=== PATIENT | female | born 1985 | race Caucasian/White ===

== ENCOUNTER 2018-03-06 20:31 | Inpatient (IN) | payer MEDICAID ==
[2018-03-06] MEDS ORDERED: Sodium Chloride 0.9% 2.5 ML Syringe FLUSH PRN (21:05)
[2018-03-06] MEDS ORDERED: Methylergonovine 0.2 MG/1 ML Amp IM PRN (21:05)
[2018-03-06] MEDS ORDERED: Lidocaine 1% 50 ML MDV INJECT PRN (21:05)
[2018-03-06] MEDS ORDERED: Misoprostol 200 MCG Tab PO PRN (21:05)
[2018-03-06] MEDS ORDERED: Water For Irrigation,Sterile 1,000 ML Container IRR PRN (21:05)
[2018-03-06] MEDS ORDERED: Carboprost Tromethamine 250 MCG/1 ML Amp IM PRN (21:05)
[2018-03-06] MEDS ORDERED: Butorphanol 1 MG/ML SDV IVPUSH PRN (21:05)
[2018-03-06] MEDS ORDERED: Sodium Chloride 0.9% 10 ML Syringe FLUSH PRN (21:05)
[2018-03-06] MEDS ORDERED: Nalbuphine 10 MG/1 ML Vial IVPUSH PRN (21:05)
[2018-03-06] MEDS ORDERED: Tranexamic Acid 1,000 MG in Sodium Chloride 0.9% 100 ML IV PRN (21:05)
[2018-03-06] MEDS ORDERED: Terbutaline 1 MG/ML SDV SUBCUT PRN (21:08)
[2018-03-06] MEDS ORDERED: Oxytocin/0.9 % Sodium Chloride 30 UNIT/500 ML BAG IV SCH (21:15)
[2018-03-06] MEDS ORDERED: ceFAZolin 1 GM Vial IM SCH (21:15)
[2018-03-06] MEDS ORDERED: ceFAZolin 2 GM in Premix Bag 1 BAG IV ONE (21:22)
[2018-03-06] MEDS: Lactated Ringers 1,000 ML IV SCH ×2 (21:35→23:53)
--- NOTE | 2018-03-06 23:23 | PCM.PREANE ---
Preanesthetic Assessment - Anesthesia/Transfusion/Family Hx Anesthesia History: Prior Anesthesia Without Reaction Transfusion History: No Prior Transfusion(s) - Review of Systems General: No Symptoms Pulmonary: No Symptoms Cardiovascular: No Symptoms Gastrointestinal: No Symptoms Neurological: No Symptoms Other: Reports: None - Physical Assessment Height: 5 ft 7 in Weight: 101.151 kg ASA Class: 2 Mental Status: Alert & Oriented x3 Airway Class: Mallampati = 2 Dentition: Reports: Normal Dentition Thyro-Mental Finger Breadths: 3 Mouth Opening Finger Breadths: 3 ROM/Head Extension: Full Lungs: Clear to Auscultation, Normal Respiratory Effort Cardiovascular: Regular Rate, Regular Rhythm - Lab Values: Laboratory Last Values WBC 10.71 K/uL (4.0-11.0) 03/06/18 21: RBC 4.01 M/uL (4.30-5.90) L 03/06/18 21:28 Hgb 12.6 g/dL (12.0-16.0) 03/06/18 21:28 Hct 37.4 % (36.0-46.0) 03/06/18 21:28 MCV 93.3 fL (80.0-98.0) 03/06/18 21:28 MCH 31.4 pg (27.0-32.0) 03/06/18 21:28 MCHC 33.7 g/dL (31.0-37.0) 03/06/18 21:28 RDW Std Deviation 49.6 fl (28.0-62.0) 03/06/18 21:28 RDW Coeff of Fausto 15 % (11.0-15.0) 03/06/18 21:28 Plt Count 181 K/uL (150-400) 03/06/18 21:28 MPV 11.80 fL (7.40-12.00) 03/06/18 21:28 Nucleated RBC % 0.0 /100WBC 03/06/18 21:28 Nucleated RBCs # 0 K/uL 03/06/18 21:28 POC Glucose 86 mg/dL (60-110) 03/06/18 20:56 - Allergies Allergies/Adverse Reactions: Allergies Allergy/AdvReac Type Severity Reaction Status Date / Time Penicillins Allergy Itching Verified 03/06/18 20:58 - Acknowledgements Anesthesia Type Planned: Epidural Pt an Appropriate Candidate for the Planned Anesthesia: Yes Alternatives and Risks of Anesthesia Discussed w Pt/Guardian: Yes Pt/Guardian Understands and Agrees with Anesthesia Plan: Yes PreAnesthesia Questionnaire HEENT History: Reports: Impaired Vision Cardiovascular History: Reports: None Respiratory History: Reports: None Gastrointestinal History: Reports: Other (See Below) Other Gastrointestinal History: chrohn's disease Genitourinary History: Reports: None MANAGER CHANGE History: Reports: : 4 Para: 3 LMP (Approximate): Other OB/BYN History: Hx of shoulder dystocia Musculoskeletal History: Reports: Fracture Neurological History: Reports: None Psychiatric History: Reports: None Endocrine/Metabolic History: Reports: Diabetes, Gestational Hematologic History: Reports: None Immunologic History: Reports: None Oncologic (Cancer) History: Reports: None Dermatologic History: Reports: None - Infectious Disease History Infectious Disease History: Reports: Chicken Pox, Measles, Mononucleosis - Past Surgical History HEENT Surgical History: Reports: Oral Surgery, Other (See Below) Other HEENT Surgeries/Procedures: wisdom teeth extraction GI Surgical History: Reports: None - SUBSTANCE USE Smoking Status *Q: Current Every Day Smoker - HOME MEDS Home Medications: Home Meds . [No Known Home Meds] 03/06/18 [History] - CURRENT (IN HOUSE) MEDS Current Meds: Current Medications Butorphanol Tartrate (Stadol) 1 mg IVPUSH Q1H PRN PRN Reason: Pain Carboprost Tromethamine (Hemabate Ds) 250 mcg IM ASDIRECTED PRN PRN Reason: Post Hemorrhage Lactated Ringer's (Ringers, Lactated) 1,000 mls @ 150 mls/hr IV ASDIRECTED AZRA Last Admin: 03/06/18 21:35 Dose: 150 mls/hr Tranexamic Acid 1,000 mg/ (Sodium Chloride) 110 mls @ 660 mls/hr IV ONETIME PRN PRN Reason: Bleeding Oxytocin/Sodium Chloride (Oxytocin 30 Unit/500 Ml-Ns) 30 unit in 500 mls @ 2 mls/hr IV TITRATE AZRA; Protocol Last Titration: 03/06/18 22:20 Dose: 4 munits/min, 4 mls/hr Cefazolin Sodium/Dextrose 1 gm (/ Premix) 50 mls @ 100 mls/hr IV Q8H [facility]RA Lidocaine HCl (Xylocaine 1%) 50 ml INJECT .ONCE PRN PRN Reason: Laceration repair Methylergonovine Maleate (Methergine) 0.2 mg IM ASDIRECTED PRN PRN Reason: Post Hemorrhage Misoprostol (Cytotec) 200 mcg PO .ONCE PRN PRN Reason: Post Hemorrhage Nalbuphine HCl (Nubain) 10 mg IVPUSH Q1H PRN PRN Reason: Pain (severe 7-10) Sodium Chloride (Saline Flush) 10 ml FLUSH ASDIRECTED PRN PRN Reason: Keep Vein Open Sodium Chloride (Saline Flush) 2.5 ml FLUSH ASDIRECTED PRN PRN Reason: Keep Vein Open Sterile Water (Sterile Water For Irrigation) 1,000 ml IRR ASDIRECTED PRN PRN Reason: delivery Terbutaline Sulfate (Brethine) 0.25 mg SUBCUT ASDIRECTED PRN PRN Reason: Tacysystole Discontinued Medications Cefazolin Sodium (Ancef) 1 gm IM Q8H [facility] Cefazolin Sodium/Dextrose 2 gm (/ Premix) 50 mls @ 100 mls/hr IV ONETIME ONE Stop: 03/06/18 21:51 Last Admin: 03/06/18 21:37 Dose: 100 mls/hr
[2018-03-07] MEDS ORDERED: ceFAZolin 1 GM in Premix Bag 1 BAG IV SCH (06:00)
[2018-03-07] MEDS ORDERED: Bupivacaine 0.5% 10 ML SDV ONE (07:59)
[2018-03-07] MEDS ORDERED: Bisacodyl 10 MG Supp RECTAL PRN (10:25)
[2018-03-07] MEDS ORDERED: Ibuprofen 400 MG Tab PO PRN (10:25)
[2018-03-07] MEDS ORDERED: Acetaminophen 500 MG Tab PO PRN (10:25)
[2018-03-07] MEDS ORDERED: Docusate Sodium 100 MG Cap PO PRN (10:25)
[2018-03-07] MEDS ORDERED: Lanolin 100% Cream 7 GM Tube TOP PRN (10:25)
[2018-03-07] MEDS ORDERED: Witch Hazel Medicated Pads 40/Jar TOP PRN (10:25)
[2018-03-07] MEDS ORDERED: Benzocaine/Menthol 20%-0.5% Spray 78 GM Cannister TOP PRN (10:25)
[2018-03-07] MEDS: Ibuprofen 800 MG Tab PO PRN ×2 (11:55→17:30)
[2018-03-07] MEDS: Acetaminophen 500 MG Tab PO PRN (14:21)
[2018-03-07] MEDS: oxyCODONE 5 MG Tab PO PRN ×3 (14:22→21:46)
--- NOTE | 2018-03-07 14:56 | OR ---
SURGEON: Halina Quintana MD DATE OF PROCEDURE: 03/07/2018 PREOPERATIVE DIAGNOSES: 1. Term intrauterine at 39 weeks and 1-day gestation. 2. Gestational diabetes, diet controlled. 3. Polyhydramnios. 4. Suspected macrosomia. POSTOPERATIVE DIAGNOSES: 1. Term intrauterine at 39 weeks and 1-day gestation. 2. Gestational diabetes, diet controlled. 3. Polyhydramnios. 4. Macrosomic baby, 5. Delivered. PROCEDURES: 1. Induction of labor. 2. Spontaneous vaginal delivery. ANESTHESIA: Epidural. ESTIMATED BLOOD LOSS: 150 mL. COMPLICATIONS: None. DISPOSITION: Mother and baby stable in Labor and Delivery room, [facility]. FINDINGS: Female infant, weight 4660 g, scores of 7 and 9 at 1 and 5 minutes respectively. Grossly normal placenta with 3-vessel cord. Intact perineum. BRIEF HISTORY: Ms Meyer is a 32-year-old patient, G4, P3-0-0-3. She is a patient of [facility] under the care of Dr. Neetu Syed. [facility] is taking care of patients from the practice this weekend as Dr. Martines, the provider, is away. She was admitted last evening for induction of labor due to gestational diabetes controlled with resultant polyhydramnios. Her care is complicated by insufficient care, she had been moved from [place] approximately 4 to 6 weeks ago, where she reports that she had received adequate care. She recently sought for care in [place] and was only seen twice at [facility] and was diagnosed with polyhydramnios on a sonogram. GBS status unknown. Of note, is that the Ms Meyer, last in 2015 was complicated by gestational diabetes, with shoulder dystocia at delivery, the infant weighed 8lbs 8oz. On admission, she definitely was measuring large for date. The parts were ballottable consistent with polyhydramnios, and it was difficult to estimate the weight accurately by Sony, with an estimate of over 4000 grams. On vaginal examination, she was 3 cm dilated, 80% effaced, and the presenting part was ballotable. The presenting part was confirmed to be cephalic with bedside SonoSite. The risks and benefits of induction of labor with Oxytocin were discussed with the patient. Also, we also had an extensive discussion of the possibilities of shoulder dystocia during delivery. Risks reviewed included possible trauma and possibly depending on its severity. Induction of labor was commenced with oxytocin. She will also receive Ancef for GBS prophylaxis, as she was allergic to penicillin. Artificial rupture of membranes was performed with copious amounts of clear fluid noted, and she received epidural for pain management. She then progressed slowly to full dilatation and commenced active pushing. With her pushing and bringing the head down to +4 station, she was set up for delivery-modified dorsal lithotomy position.She remained euglycemic throughout the intrapartum period. heart tracing was Category 2. DESCRIPTION OF DELIVERY: She had a spontaneous vaginal delivery of a live female in direct occipital anterior position. Once the head was delivered, the patient was placed in Ford position in anticipation of possible difficulty with delivery of the shoulders. A loose nuchal cord was felt and reduced. The baby then restituted to left occipital anterior position and the anterior and posterior shoulders were delivered without difficulty, but there was mild difficulty delivering the abdomen; but once this was achieved, the rest of the baby was delivered. The was flooding of amniotic fluid with delivery of the baby, and the terminal meconium staining was also noted. Upon delivery, the baby was floppy, and stimulation was started on the perineum. The cord was then quickly double clamped and cut, and the was then taken the warmer in attendance of the nursery staff who continued with stimulation, drying and evaluation of the . Dr. Glasgow, the cable ferry operator on-call, was called, as she was at the nursing station and she arrived [facility]. With delivery of the infant, oxytocin infusion was converted to titration. Cord blood and gas samples were obtained, and the placenta was delivered by controlled cord traction, appeared to be complete and intact. Vigorous uterine massage was performed. The uterus was found to be well contracted. Examination of the perineum revealed no lacerations. The patient tolerated the procedure well. Sponge, instrument, and needle counts were correct at the end of the delivery. The baby transitioned well and remained in the Labor and Delivery room with the mother, bonding. ADUMVIV / RUDOLPHL /[id number] NIYA
[2018-03-08] MEDS: oxyCODONE 5 MG Tab PO PRN ×3 (04:48→13:45)
[2018-03-08] MEDS: Ibuprofen 800 MG Tab PO PRN ×2 (04:49→10:36)
[2018-03-08] MEDS: Acetaminophen 500 MG Tab PO PRN ×2 (08:06→13:49)
--- NOTE | 2018-03-08 10:12 | PCM48HPAN ---
Post Anesthesia Note - EVALUATION WITHIN 48HRS OF ANESTHETIC Vital Signs in Normal Range: Yes Patient Participated in Evaluation: Yes Respiratory Function Stable: Yes Airway Patent: Yes Cardiovascular Function Stable: Yes Hydration Status Stable: Yes Pain Control Satisfactory: Yes Nausea and Vomiting Control Satisfactory: Yes Mental Status Recovered: Yes Resp Rate: 16
--- NOTE | 2018-03-08 13:11 | PCM.PNPP ---
- General Info Date of Service: 03/08/18 Functional Status: Reports: Pain Controlled, Tolerating Diet, Ambulating, Urinating - Review of Systems General: Denies: Fever, Malaise, Chills HEENT: Denies: Headaches Pulmonary: Denies: Shortness of Breath, Pleuritic Chest Pain Cardiovascular: Denies: Chest Pain, Palpitations, Dyspnea on Exertion Gastrointestinal: Reports: Abdominal Pain (mild cramps controlled with pain meds PRN) Genitourinary: Denies: Dysuria, Frequency, Incontinence, Retention Skin: Reports: No Symptoms Neurological: Reports: No Symptoms Psychiatric: Reports: No Symptoms - General Info Date of Service: 03/08/18 - Patient Data Vital Signs - Most Recent: Last Vital Signs Temp 36.7 C 03/08/18 08:00 Pulse 70 03/08/18 08:00 Resp 16 03/08/18 10:12 BP 121/65 03/08/18 08:00 Pulse Ox 96 03/08/18 08:00 Weight - Most Recent: 223 lb Lab Results - Last 24 Hours: Laboratory Results - last 24 hr 03/08/18 Range/Units 05:53 Hgb 11.8 L (12.0-16.0) g/dL Hct 35.4 L (36.0-46.0) % Med Orders - Current: Current Medications Acetaminophen (Tylenol Extra Strength) 500 mg PO Q4H PRN PRN Reason: Pain Last Admin: 03/07/18 21:45 Dose: 500 mg Acetaminophen (Tylenol Extra Strength) 1,000 mg PO Q4H PRN PRN Reason: Pain Last Admin: 03/08/18 08:06 Dose: 1,000 mg Benzocaine/Menthol (Dermoplast Pain Relief 20%-0.5% [place]) 78 gm TOP ASDIRECTED PRN PRN Reason: Perineal Comfort Measure Bisacodyl (Dulcolax) 10 mg RECTAL .ONCE PRN PRN Reason: Constipation Docusate Sodium (Colace) 100 mg PO BID PRN PRN Reason: Constipation Last Admin: 03/07/18 12:32 Dose: 100 mg Emollient Ointment (Lansinoh Hpa) 0 gm TOP ASDIRECTED PRN PRN Reason: Sore Nipples Ibuprofen (Motrin) 400 mg PO Q4H PRN PRN Reason: Pain Ibuprofen (Motrin) 800 mg PO Q6H PRN PRN Reason: Pain Last Admin: 03/08/18 10:36 Dose: 800 mg Oxycodone HCl (Oxycodone) 5 mg PO Q2H PRN PRN Reason: Pain Last Admin: 03/08/18 04:48 Dose: 5 mg Witch Zahra (Tucks) 1 pad TOP ASDIRECTED PRN PRN Reason: comfort care Discontinued Medications Bupivacaine HCl (Sensorcaine-Mpf 0.5%) Confirm Administered Dose 10 ml .ROUTE .STK-MED ONE Stop: 03/07/18 08:00 Last Admin: 03/07/18 22:53 Dose: Not Given Butorphanol Tartrate (Stadol) 1 mg IVPUSH Q1H PRN PRN Reason: Pain Carboprost Tromethamine (Hemabate Ds) 250 mcg IM ASDIRECTED PRN PRN Reason: Post Hemorrhage Cefazolin Sodium (Ancef) 1 gm IM Q8H [facility] Last Admin: 03/07/18 22:53 Dose: Not Given Lactated Ringer's (Ringers, Lactated) 1,000 mls @ 150 mls/hr IV ASDIRECTED AZRA Last Admin: 03/06/18 23:53 Dose: 150 mls/hr Tranexamic Acid 1,000 mg/ (Sodium Chloride) 110 mls @ 660 mls/hr IV ONETIME PRN PRN Reason: Bleeding Oxytocin/Sodium Chloride (Oxytocin 30 Unit/500 Ml-Ns) 30 unit in 500 mls @ 2 mls/hr IV TITRATE [facility]; Protocol Last Titration: 03/07/18 10:08 Dose: 999 mls/hr Cefazolin Sodium/Dextrose 2 gm (/ Premix) 50 mls @ 100 mls/hr IV ONETIME ONE Stop: 03/06/18 21:51 Last Admin: 03/06/18 21:37 Dose: 100 mls/hr Cefazolin Sodium/Dextrose 1 gm (/ Premix) 50 mls @ 100 mls/hr IV Q8H [facility] Last Admin: 03/07/18 06:04 Dose: 100 mls/hr Fentanyl/Bupivacaine HCl ([id number] 2 Mcg/Ml-0.125%) Confirm Administered Dose 100 mls @ as directed EP .STK-MED ONE Stop: 03/06/18 23:26 Last Admin: 03/07/18 22:53 Dose: Not Given Fentanyl/Bupivacaine HCl ([id number] 2 Mcg/Ml-0.125%) Confirm Administered Dose 100 mls @ as directed [facility] ONE Stop: 03/07/18 07:10 Last Admin: 03/07/18 22:53 Dose: Not Given Lidocaine HCl (Xylocaine 1%) 50 ml INJECT .ONCE PRN PRN Reason: Laceration repair Methylergonovine Maleate (Methergine) 0.2 mg IM ASDIRECTED PRN PRN Reason: Post Hemorrhage Misoprostol (Cytotec) 200 mcg PO .ONCE PRN PRN Reason: Post Hemorrhage Nalbuphine HCl (Nubain) 10 mg IVPUSH Q1H PRN PRN Reason: Pain (severe 7-10) Sodium Chloride (Saline Flush) 10 ml FLUSH ASDIRECTED PRN PRN Reason: Keep Vein Open Sodium Chloride (Saline Flush) 2.5 ml FLUSH ASDIRECTED PRN PRN Reason: Keep Vein Open Sterile Water (Sterile Water For Irrigation) 1,000 ml IRR ASDIRECTED PRN PRN Reason: delivery Last Admin: 03/07/18 10:00 Dose: 1,000 ml Terbutaline Sulfate (Brethine) 0.25 mg SUBCUT ASDIRECTED PRN PRN Reason: Tacysystole - Infant Interaction Infant Disposition, : [place] to Nursery Infant Feeding: Bottle Fed Infant Support Person: Significant Other - Recovery Exam Fundal Tone: Firm Fundal Level: At Umbilicus Fundal Placement: Midline Lochia Amount: Small Lochia Color: Rubra/Red Perineum Description: Intact, Minimal Bruising/Swelling Bladder Status: Voiding - Exam General: Alert, Oriented HEENT: Pupils Equal Lungs: Clear to Auscultation, Normal Respiratory Effort Cardiovascular: Regular Rate, Regular Rhythm GI/Abdominal Exam: Soft, Non-Tender Extremities: Non-Tender, Pedal Edema Skin: Warm Psy/Mental Status: Alert, Normal Affect, Normal Mood - Problem List & Annotations (1) Vaginal delivery SNOMED Code(s): 705226591 Code(s): O80 - ENCOUNTER FOR FULL-TERM UNCOMPLICATED DELIVERY Status: Acute Current Visit: Yes (2) Gestational diabetes SNOMED Code(s): 36992626 Code(s): O24.419 - GESTATIONAL DIABETES MELLITUS IN , UNSP CONTROL Status: Acute Current Visit: Yes - Problem List Review Problem List Initiated/Reviewed/Updated: Yes - Assessment Assessment:: PPD #1 s/p of a macrosomic infant, c/o soreness but otherwise stable and afebrile Clinically stable for discharge today - Plan Plan:: Discharge instructions reviewed Nothing in the vagina for 6 weeks Bleeding and infection precautions reviewed OTC pain meds PRN Needs a 2 hr GTT at 6-12 weeks Follow up for routine visit at [facility] in 2-6 weeks
== END 2018-03-08 14:18 | disposition home or self-care (01) | DRG 775 ==
LOC: MW.OBCHECK 20:31 → MW.OB 20:35 → MW.OBCHECK 21:05 → MW.OB 21:05 → OBSVTOIN 03-07 10:05
PROVIDERS: ADMIT Obstetrics & Gynecology; ATTEND Obstetrics & Gynecology
PROC: 10E0XZZ Delivery of Products of Conception, External Approach (ICD-10-PCS; principal; 2018-03-07)
PROC: 3E033VJ Introduction of Other Hormone into Peripheral Vein, Percutaneous Approach (ICD-10-PCS; 2018-03-07)
PROC: 10907ZC Drainage of Amniotic Fluid, Therapeutic from Products of Conception, Via Natural or Artificial Opening (ICD-10-PCS; 2018-03-07)
DX: O24.420 Gestational diabetes mellitus in childbirth, diet controlled (principal); O40.3XX0 Polyhydramnios, third trimester, not applicable or unspecified; O36.63X0 Maternal care for excessive fetal growth, third trimester, not applicable or unspecified; O09.33 Supervision of pregnancy with insufficient antenatal care, third trimester; O99.334 Smoking (tobacco) complicating childbirth; Z3A.39 39 weeks gestation of pregnancy; Z37.0 Single live birth; Z88.0 Allergy status to penicillin
CPT/HCPCS: 36415; 51701; 51702; 59025; 59409; 80305; 81003; 82803; 82962; 85014; 85018; 85027; 86156; 86850; 86900; 86901; 88307; A9270-GY; J0690; J2590; J7120

== ENCOUNTER 2018-05-08 10:47 | Emergency (ER) | payer MEDICAID ==
[2018-05-08] MEDS ORDERED: Sodium Chloride 0.9% 1,000 ML IV ONE (10:59)
[2018-05-08 11:49] LABS: CHLORIDE,CL 109 mmol/L (98-107); SODIUM,NA 140 mmol/L (136-145)
--- NOTE | 2018-05-08 12:28 | EDM.PDOC ---
ED HPI GENERAL MEDICAL PROBLEM - General Chief Complaint: Fever Stated Complaint: UNK ISSUES Time Seen by Provider: 05/08/18 11:00 Source of Information: Reports: Patient History Limitations: Reports: No Limitations - History of Present Illness INITIAL COMMENTS - FREE TEXT/NARRATIVE: HISTORY AND PHYSICAL: History of present illness: Patient is a 32-year-old female who presents to the emergency room today with complaints of a 2 day history of fever, low back pain and dysuria. Patient is concerned as she is 2 months , vaginal delivery. No complications post delivery. She is currently bottlefeeding, not breast-feeding. She also received the Depo-Provera control injection 2 weeks ago. She denies any chest pain, shortness of breath, cough, abdominal pain, nausea, vomiting, diarrhea or constipation. She has no vaginal bleeding or discharge Review of systems: As per history of present illness and below otherwise all systems reviewed and negative. Past medical history: As per history of present illness and as reviewed below otherwise noncontributory. Surgical history: As per history of present illness and as reviewed below otherwise noncontributory. Social history: No reported history of drug or alcohol abuse. Family history: As per history of present illness and as reviewed below otherwise noncontributory. Physical exam: General: Well-developed 32-year-old female. Alert and oriented. Nontoxic appearing and in no acute distress. HEENT: Atraumatic, normocephalic, pupils equal and reactive bilaterally, negative for conjunctival pallor or scleral icterus, mucous membranes moist but lips are dry appearing, throat clear, neck supple, nontender, trachea midline. No drooling or trismus noted. No meningeal signs Lungs: Clear to auscultation, breath sounds equal bilaterally, chest nontender. Heart: S1S2, regular rate and rhythm without overt murmur Abdomen: Soft, nondistended, nontender. Negative for masses or hepatosplenomegaly. Negative for costovertebral tenderness. Pelvis: Stable nontender. Genitourinary: Deferred. Rectal: Deferred. Skin: Intact, warm, dry. No lesions or rashes noted. Extremities: Atraumatic, negative for cords or calf pain. Neurovascular unremarkable. Neuro: Awake, alert, oriented. Cranial nerves II through XII unremarkable. Cerebellum unremarkable. Motor and sensory unremarkable throughout. Exam nonfocal. Notes: Her physical examination is normal. She has no flank pain or suprapubic discomfort. Appear slightly dry and she states she is unable to void at this time. I will give her some IV fluids to help rehydrate her and to get a urine sample. Her urinalysis shows she has a UTI. I will place her on Macrobid and Pyridium. A urine culture has been added. Supportive care measures were reviewed and discussed. She voices understanding and is agreeable to plan of care. Diagnostics: CBC, CMP, UA, urine , urine culture Therapeutics: IV fluid Impression: Urinary tract infection Plan: Please take your antibiotic as discussed Increase your oral fluids Tylenol and Ibuprofen as needed for pain/fever management Follow up with your primary care provider in the next 1-2 days. Return to the ED as needed and as discussed. Definitive disposition and diagnosis as appropriate pending reevaluation and review of above. Duration: Day(s): Bilateral Lower Back Pain Score (Numeric/FACES): 8 - Related Data Allergies Allergy/AdvReac Type Severity Reaction Status Date / Time Penicillins Allergy Itching Verified 05/08/18 10:56 Home Meds: Home Meds . 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: Hx of shoulder dystocia Musculoskeletal History: Reports: Fracture Neurological History: Reports: None Psychiatric History: Reports: None Endocrine/Metabolic History: Reports: Diabetes, Gestational Hematologic History: Reports: None Immunologic History: Reports: None Oncologic (Cancer) History: Reports: None Dermatologic History: Reports: None - Infectious Disease History Infectious Disease History: Reports: Chicken Pox, Measles, Mononucleosis - Past Surgical History HEENT Surgical History: Reports: Oral Surgery, Other (See Below) Other HEENT Surgeries/Procedures: wisdom teeth extraction GI Surgical History: Reports: None Social & Family History - Family History HEENT: Reports: Glaucoma, Impaired Vision Cardiac: Reports: None Respiratory: Reports: None GI: Reports: None : Reports: None OBGYN: Reports: Musculoskeletal: Reports: Arthritis Neurological: Reports: CVA Psychiatric: Reports: None Endocrine/Metabolic: Reports: Diabetes, type II Hematologic: Reports: None Immunologic: Reports: None Dermatologic: Reports: None Oncologic: Reports: None - Tobacco Use Smoking Status *Q: Current Every Day Smoker Years of Tobacco use: 10 Packs/Tins Daily: 0.3 - Caffeine Use Caffeine Use: Reports: Coffee, Soda - Recreational Drug Use Recreational Drug Use: No ED ROS GENERAL - Review of Systems Review Of Systems: ROS reveals no pertinent complaints other than HPI. ED EXAM, GENERAL - Physical Exam Exam: See Below (See dictation) Course - Vital Signs Last Recorded V/S: Last Vital Signs Temp 97.2 F 05/08/18 10:57 Pulse 106 H 05/08/18 10:57 Resp 16 05/08/18 10:57 BP 130/75 05/08/18 10:57 Pulse Ox 98 05/08/18 10:57 - Orders/Labs/Meds Orders: Active Orders 24 hr Category Date Time Status CULTURE STREP A CONFIRMATION [RM] Stat Lab 05/08/18 11:09 Results CULTURE URINE [RM] Stat Lab 05/08/18 12:33 Ordered HCG QUALITATIVE,URINE [URCHEM] Stat Lab 05/08/18 11:50 Ordered STREP SCRN A RAPID W CULT CONF [RM] Stat Lab 05/08/18 11:09 Ordered UA W/MICROSCOPIC [URIN] Stat Lab 05/08/18 11:50 Ordered Labs: Laboratory Tests 05/08/18 05/08/18 05/08/18 Range/Units 11:08 11:08 11:50 WBC 9.57 (4.0-11.0) K/uL RBC 4.05 L (4.30-5.90) M/uL Hgb 12.5 (12.0-16.0) g/dL Hct 36.6 (36.0-46.0) % MCV 90.4 (80.0-98.0) fL MCH 30.9 (27.0-32.0) pg MCHC 34.2 (31.0-37.0) g/dL RDW Std Deviation 46.6 (28.0-62.0) fl RDW Coeff of Fausto 14 (11.0-15.0) % Plt Count 200 (150-400) K/uL MPV 10.50 (7.40-12.00) fL Neut % (Auto) 75.5 (48.0-80.0) % Lymph % (Auto) 15.7 L (16.0-40.0) % [place] % (Auto) 6.4 (0.0-15.0) % Eos % (Auto) 2.3 (0.0-7.0) % Baso % (Auto) 0.1 (0.0-1.5) % Neut # (Auto) 7.2 H (1.4-5.7) K/uL Lymph # (Auto) 1.5 (0.6-2.4) K/uL [place] # (Auto) 0.6 (0.0-0.8) K/uL Eos # (Auto) 0.2 (0.0-0.7) K/uL Baso # (Auto) 0.0 (0.0-0.1) K/uL Nucleated RBC % 0.0 /100WBC Nucleated RBCs # 0 K/uL Sodium 140 (136-145) mmol/L Potassium 3.3 L (3.5-5.1) mmol/L Chloride 109 H (98-107) mmol/L Carbon Dioxide 22.4 (21.0-32.0) mmol/L BUN 9 (7.0-18.0) mg/dL Creatinine 0.7 (0.6-1.0) mg/dL Est Cr Clr Drug Dosing 118.54 mL/min Estimated GFR (MDRD) > 60.0 ml/min Glucose 127 H (74-106) mg/dL Calcium 10.1 (8.5-10.1) mg/dL Total Bilirubin 0.9 (0.2-1.0) mg/dL AST 19 (15-37) IU/L ALT 50 (14-63) IU/L Alkaline Phosphatase 99 (46-116) U/L Total Protein 7.1 (6.4-8.2) g/dL Albumin 3.4 (3.4-5.0) g/dL Globulin 3.7 H (2.0-3.5) g/dL Albumin/Globulin Ratio 0.9 L (1.3-2.8) Urine Color YELLOW Urine Appearance SLT CLOUDY Urine pH 7.0 (5.0-8.0) Ur Specific [place] 1.025 (1.001-1.035) Urine Protein 100 (NEGATIVE) mg/dL Urine Glucose (UA) NEGATIVE (NEGATIVE) mg/dL Urine Ketones TRACE H (NEGATIVE) mg/dL Urine Occult Blood LARGE H (NEGATIVE) Urine Nitrite POSITIVE H (NEGATIVE) Urine Bilirubin NEGATIVE (NEGATIVE) Urine Urobilinogen 4.0 H (<2.0) EU/dL Ur Leukocyte Esterase NEGATIVE (NEGATIVE) Urine RBC 5-10 (0-2/HPF) Urine WBC 3-5 (0-5/HPF) Ur Epithelial Cells MODERATE (NONE-FEW) Urine Bacteria 1+ H (NEGATIVE) Urine HCG, Qual (NEGATIVE) 05/08/18 Range/Units 11:50 WBC (4.0-11.0) K/uL RBC (4.30-5.90) M/uL Hgb (12.0-16.0) g/dL Hct (36.0-46.0) % MCV (80.0-98.0) fL MCH (27.0-32.0) pg MCHC (31.0-37.0) g/dL RDW Std Deviation (28.0-62.0) fl RDW Coeff of Fausto (11.0-15.0) % Plt Count (150-400) K/uL MPV (7.40-12.00) fL Neut % (Auto) (48.0-80.0) % Lymph % (Auto) (16.0-40.0) % [place] % (Auto) (0.0-15.0) % Eos % (Auto) (0.0-7.0) % Baso % (Auto) (0.0-1.5) % Neut # (Auto) (1.4-5.7) K/uL Lymph # (Auto) (0.6-2.4) K/uL [place] # (Auto) (0.0-0.8) K/uL Eos # (Auto) (0.0-0.7) K/uL Baso # (Auto) (0.0-0.1) K/uL Nucleated RBC % /100WBC Nucleated RBCs # K/uL Sodium (136-145) mmol/L Potassium (3.5-5.1) mmol/L Chloride (98-107) mmol/L Carbon Dioxide (21.0-32.0) mmol/L BUN (7.0-18.0) mg/dL Creatinine (0.6-1.0) mg/dL Est Cr Clr Drug Dosing mL/min Estimated GFR (MDRD) ml/min Glucose (74-106) mg/dL Calcium (8.5-10.1) mg/dL Total Bilirubin (0.2-1.0) mg/dL AST (15-37) IU/L ALT (14-63) IU/L Alkaline Phosphatase (46-116) U/L Total Protein (6.4-8.2) g/dL Albumin (3.4-5.0) g/dL Globulin (2.0-3.5) g/dL Albumin/Globulin Ratio (1.3-2.8) Urine Color Urine Appearance Urine pH (5.0-8.0) Ur Specific [place] (1.001-1.035) Urine Protein (NEGATIVE) mg/dL Urine Glucose (UA) (NEGATIVE) mg/dL Urine Ketones (NEGATIVE) mg/dL Urine Occult Blood (NEGATIVE) Urine Nitrite (NEGATIVE) Urine Bilirubin (NEGATIVE) Urine Urobilinogen (<2.0) EU/dL Ur Leukocyte Esterase (NEGATIVE) Urine RBC (0-2/HPF) Urine WBC (0-5/HPF) Ur Epithelial Cells (NONE-FEW) Urine Bacteria (NEGATIVE) Urine HCG, Qual NEGATIVE (NEGATIVE) Meds: Medications Discontinued Medications Generic Name Dose Route Start Last Admin Trade Name Freq PRN Reason Stop Dose Admin Sodium Chloride 1,000 mls @ 999 mls/hr 05/08/18 10:59 05/08/18 11:11 Normal Saline IV 05/08/18 11:59 999 mls/hr .Bolus ONE Administration Departure - Departure Time of Disposition: 12:27 Disposition: Home, Self-Care 01 Clinical Impression: Urinary tract infection Qualifiers: Urinary tract infection type: acute cystitis Hematuria presence: with hematuria Qualified Code(s): N30.01 - Acute cystitis with hematuria - Discharge Information Instructions: Urinary Tract Infection, Adult Referrals: [facility] [Outside] [facility] [Outside] PCP,None [Primary Care Provider] - Forms: ED Summary Discharge Additional Instructions: The following information is given to patients seen in the emergency department who are being discharged to home. This information is to outline your options for follow-up care. We provide all patients seen in our emergency department with a follow-up referral. The need for follow-up, as well as the timing and circumstances, are variable depending upon the specifics of your emergency department visit. If you don't have a primary care physician on staff, we will provide you with a referral. We always advise you to contact your personal physician following an emergency department visit to inform them of the circumstance of the visit and for follow-up with them and/or the need for any referrals to a consulting specialist. The emergency department will also refer you to a specialist when appropriate. This referral assures that you have the opportunity for follow-up care with a specialist. All of these measure are taken in an effort to provide you with optimal care, which includes your follow-up. Under all circumstances we always encourage you to contact your private physician who remains a resource for coordinating your care. When calling for follow-up care, please make the office aware that this follow-up is from your recent emergency room visit. If for any reason you are refused follow-up, please contact the [facility] Emergency Department at and asked to speak to the emergency department charge nurse. [facility] [address] [place] [id number] Please take your antibiotic as discussed Increase your oral fluids Tylenol and Ibuprofen as needed for pain/fever management Follow up with your primary care provider in the next 1-2 days. Return to the ED as needed and as discussed. - My Orders Last 24 Hours: My Active Orders 05/08/18 11:09 CULTURE STREP A CONFIRMATION [RM] Stat STREP SCRN A RAPID W CULT CONF [RM] Stat 05/08/18 11:50 HCG QUALITATIVE,URINE [URCHEM] Stat UA W/MICROSCOPIC [URIN] Stat - Assessment/Plan Last 24 Hours: My Active Orders 05/08/18 11:09 CULTURE STREP A CONFIRMATION [RM] Stat STREP SCRN A RAPID W CULT CONF [RM] Stat 05/08/18 11:50 HCG QUALITATIVE,URINE [URCHEM] Stat UA W/MICROSCOPIC [URIN] Stat
== END 2018-05-08 12:38 | disposition home or self-care (01) ==
LOC: MW.ED 10:47
DX: N30.01 Acute cystitis with hematuria (principal); E11.9 Type 2 diabetes mellitus without complications; F17.210 Nicotine dependence, cigarettes, uncomplicated; Z88.0 Allergy status to penicillin
CPT/HCPCS: 36415; 80053; 81001; 81025; 85025; 87081; 87086; 87088; 87186; 87880; 96360; 99283; J7040